=== PATIENT | male | born 1965 | race Caucasian/White ===

== ENCOUNTER 2021-03-19 00:36 | Day surgery (SDC) | payer BC, SELFPAY ==
[2021-03-07 09:35] VITALS: BMI 36.8
[2021-03-19 06:50] VITALS: BP 147/96; PULSE 95; RESP 18; TEMP 36.6; O2SAT 99; BMI 37.5
[2021-03-19] MEDS: LACTATED RINGERS 1,000 ML 150 ML IV CONT ×2 (07:10→08:38)
--- NOTE | 2021-03-19 08:08 | WPDGICN ---
Assessment and Plan Assessment and plan (1) History of colon polyps: Code(s): Z86.010 - Personal history of colonic polyps Status: Acute Assessment and Plan: Patient has a history of colon polyps. For this reason surveillance colonoscopy will be performed at this time. Follow-up interval will be turned he be determined by findings of endoscopy. GI Consult Note Consult date/time: 03/19/21 08:08 HPI: Jordi Dewitt is a 55 year old male Presents for screening colonoscopy. Patient has a history of colon polyps in 2014. He reports his current weight appetite bowel movements are normal. He denies abdominal pain. He presents today for follow-up colonoscopy. He states bowel habits have remained normal. Review of Systems Review of Systems: All systems reviewed & are unremarkable except as noted in HPI and below PMFSH Past Medical History Medical History (Updated 03/19/21 @ 08:10 by Parish Smith MD) Asthma Depression MANJIT (obstructive sleep apnea) Family History Family History (Updated 02/02/15 @ 11:41 by DOCTOR UNKNOWN) Other Cerebrovascular accident Hypertension Malignant neoplasm of prostate Social History Social History Smoking status: Former smoker Tobacco type: cigarettes Second hand tobacco smoke exposure: No Alcohol intake: current Living arrangements: with family Spiritual care concerns: No Meds Home Medications and Allergies Home Medications Medication Instructions Recorded Confirmed Type venlafaxine 150 mg 150 mg PO DAILY #30 cap 08/24/19 03/19/21 Rx capsule,extended release 24 hr cholecalciferol (vitamin D3) 25 mcg PO DAILY 03/07/21 03/19/21 History [Vitamin D3] fluticasone propion-salmeterol 1 inh INHALATION BID 03/07/21 03/19/21 History [Wixela Inhub] meloxicam 15 mg PO DAILY 03/07/21 03/19/21 History psyllium [Fiber Therapy (psyllium)] 1 tbsp PO BID 03/07/21 03/19/21 History risperidone 1 mg PO DAILY 03/07/21 03/19/21 History Allergies Allergy/AdvReac Type Severity Reaction Status Date / Time No Known Allergies Allergy Verified 03/19/21 06:49 Vital Signs Vital Signs - 24 hr 03/19/21 06:50 Temperature 97.8 F Pulse Rate 95 Respiratory Rate 18 Blood Pressure 147/96 H Pulse Oximetry 99 Exam Narrative: Exam Narrative: Physical exam reveals patient be alert. Vital signs stable. HEENT exam is unremarkable. Patient is anicteric. Lungs are clear to auscultation and percussion. Heart is without murmur or extra sounds. Abdominal exam bowel sounds are present soft nontender with no hepatosplenomegaly. Digital external rectal exam is normal.
--- NOTE | 2021-03-19 08:12 | P.PNAN_ITS ---
Anes - Initial Pre Proc Eval Procedure: Operation Date: 03/19/21 08:30 Proposed Procedures p Screening Colonoscopy - Parish Smith MD Date/Time: 03/19/21 08:12 Surgeon: Parish Smith MD Pre Op Diagnosis: neoplasm Patient Data Age: 55 Gender: M Height: 1.75 m Weight: 115.4 kg Last Vital Signs Temp 97.8 F 03/19/21 06:50 Pulse 95 03/19/21 06:50 Resp 18 03/19/21 06:50 BP 147/96 H 03/19/21 06:50 Pulse Ox 99 03/19/21 06:50 Allergies Allergy/AdvReac Type Severity Reaction Status Date / Time No Known Allergies Allergy Verified 03/19/21 06:49 Home Medications Medication Instructions Recorded Confirmed Type venlafaxine 150 mg 150 mg PO DAILY #30 cap 08/24/19 03/19/21 Rx capsule,extended release 24 hr cholecalciferol (vitamin D3) 25 mcg PO DAILY 03/07/21 03/19/21 History [Vitamin D3] fluticasone propion-salmeterol 1 inh INHALATION BID 03/07/21 03/19/21 History [Wixela Inhub] meloxicam 15 mg PO DAILY 03/07/21 03/19/21 History psyllium [Fiber Therapy (psyllium)] 1 tbsp PO BID 03/07/21 03/19/21 History risperidone 1 mg PO DAILY 03/07/21 03/19/21 History Patient hx anesthesia problems: none Family hx anesthesia problems: none [facility] [place] Past Medical History Medical History (Updated 03/19/21 @ 08:10 by Parish Smith MD) Asthma Depression MANJIT (obstructive sleep apnea) Family History Family History (Updated 02/02/15 @ 11:41 by DOCTOR UNKNOWN) Other Cerebrovascular accident Hypertension Malignant neoplasm of prostate Social History Social History Smoking status: Former smoker Tobacco type: cigarettes Second hand tobacco smoke exposure: No Alcohol intake: current Living arrangements: with family Spiritual care concerns: No Anes - Eval Final PreProcedure Day of Procedure 03/19/21 08:12 Patient weight: obese Heart: regular rate and rhythm Lungs: clear to auscultation Airway: Mallampati scale class III Neurological: alert and oriented Last oral intake: >/= 8 hours ASA classification: III Emergent: no Anesthetic plan: proceed Anesthesia type and monitoring: general GIVS and standard monitoring Informed Consent: The patient's anesthetic plan and its attendant risks and benefits were discussed with the patient/family/POA. Questions were solicited and answers provided to the satisfaction of the patient/family/POA.
[2021-03-19 08:56] VITALS: BP 128/84; PULSE 93; RESP 19; O2SAT 99
[2021-03-19 09:06] VITALS: BP 120/79; PULSE 82; RESP 19; O2SAT 98
[2021-03-19 09:16] VITALS: BP 121/91; PULSE 78; RESP 18; O2SAT 98
== END 2021-03-19 09:30 | disposition home or self-care (01) ==
PROVIDERS: PCP Internal Medicine; Visit Provider Internal Medicine Gastroenterology
PROC: 0DJD8ZZ Inspection of Lower Intestinal Tract, Via Natural or Artificial Opening Endoscopic (ICD-10-PCS; CPT 45378; principal; 2021-03-19 08:30)
DX: Z12.11 Encounter for screening for malignant neoplasm of colon (principal); Z86.010 Personal history of colon polyps; J45.909 Unspecified asthma, uncomplicated; F32.9 Major depressive disorder, single episode, unspecified; G47.33 Obstructive sleep apnea (adult) (pediatric); Z87.891 Personal history of nicotine dependence; E66.9 Obesity, unspecified; Z68.37 Body mass index [BMI] 37.0-37.9, adult
CPT/HCPCS: 45378; J2704; J7120